=== PATIENT | female | born 1995 | race Caucasian/White ===

== ENCOUNTER 2020-04-09 18:36 | Emergency (ER) | payer OTHER ==
[~2020-04-09] VITALS: Ht 165.1 cm; Wt 63.0 kg
[2020-04-09] MEDS ORDERED: KETOROLAC 60MG 2ML VIAL IM ONE (21:45)
[2020-04-09] MEDS ORDERED: diazePAM 10MG/2ML SYRINGE (J3360 PER 5MG) IM ONE (21:45)
[2020-04-09] MEDS ORDERED: CYCL-707 PO (21:47)
[2020-04-09] MEDS ORDERED: IBUP-1022 PO (21:47)
[2020-04-09 22:11] VITALS: BP 112/86
[2020-04-09] MEDS ORDERED: diazePAM 10 MG TAB PO ONE (22:15)
== END 2020-04-09 22:39 | disposition home or self-care (01) ==
LOC: M ED 18:36
DX: S33.5XXA Sprain of ligaments of lumbar spine, initial encounter (principal); X50.0XXA Overexertion from strenuous movement or load, initial encounter; Y92.9 Unspecified place or not applicable; Y93.B3 Activity, free weights; Y99.9 Unspecified external cause status
CPT/HCPCS: 96372; 99283; J1885